=== PATIENT | female | born 1990 ===

== ENCOUNTER 2020-05-14 12:05 | Outpatient (CLI) | payer SELFPAY ==
[2020-05-14 12:42] VITALS: BP 115/81
[2020-05-14] MEDS ORDERED: LACTATED RINGERS 1,000 ML IV SCH (13:00)
--- NOTE | 2020-05-14 15:36 | Ultrasound Report ---
ULTRASOUND OBSTETRIC LIMITED ULTRASOUND BIOPHYSICAL PROFILE INDICATION / CLINICAL INFORMATION: Nonreactive stress test. COMPARISON: None available. FINDINGS: BREATHING MOVEMENT = 0 GROSS BODY MOVEMENT = 2 TONE = 2 QUALITATIVE AMNIOTIC FLUID VOLUME = 2 TOTAL BIOPHYSICAL SCORE = 6/8 AMNIOTIC FLUID INDEX (cm) = 12.9 PRESENTATION: Cephalic. HEART RATE (beats per minute): 140 ADDITIONAL FINDINGS: The technologist reports possible right hydronephrosis. However, I do not see an image demonstrating this finding. IMPRESSION: 1. Biophysical Score = 6/8 2. Normal amniotic fluid index of 12.9 cm. 3. Additional findings as above. Signer Name: Marc Hsu MD Signed: 05/14/2020 3:31 PM Workstation Name: [id number]
== END 2020-05-14 15:12 | disposition home or self-care (01) ==
LOC: TRG 12:05 → APU 12:08 → TRG 15:12
PROVIDERS: ATTEND Obstetrics & Gynecology
DX: Z34.83 Encounter for supervision of other normal pregnancy, third trimester (principal); Z3A.37 37 weeks gestation of pregnancy
CPT/HCPCS: 59025; 76815; 76819

== ENCOUNTER 2020-05-26 10:16 | Inpatient (IN) | payer MEDICAID, OTHER, SELFPAY ==
--- NOTE | 2020-05-24 11:46 | History and Physical Report ---
<ANGEL ELLIS JR - Last Filed: 05/24/20 12:59> History of Present Illness Date of examination: 05/24/20 Chief complaint: repeat c/s + BTL History of present illness: 30 yo at 39w4d c/b asthma, Hx LEEP, Prior c/s x 1 (FTP), Class II Obestiy, ASCUS/HPV neg, GDM (diet controlled) presenting for repeat c/s. Labs reviewed. Elevated 1hr GTT 205. Otherwise wnl. 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: abnormal PAP smear Family/Genetic History: none Social history: no significant social history - Obstetrical History : 5 Para: 3 Hx # Term Pregnancies: 3 Spontaneous Abortions: 1 Number of Living Children: 3 Medications and Allergies Allergies Allergy/AdvReac Type Severity Reaction Status Date / Time No Known Allergies Allergy Verified 03/28/16 15:45 Home Medications Medication Instructions Recorded Confirmed Last Taken Type HYDROcodone/APAP 5-325 [[place] 2 each PO Q6H PRN #30 tablet 03/30/16 Unknown Rx 5-325 mg TAB] Ibuprofen [Motrin 600 MG tab] 600 mg PO Q6H #30 tablet 03/30/16 Unknown Rx Review of Systems All systems: negative (expect HPI) - Physical Exam Abdomen: Positive: normal appearance, normal bowel sounds, other (gravid) - Obstetrical FHR: category 1 Uterine Contraction Monitor Mode: External Uterine Contraction Pattern: Absent Results All other labs normal. Assessment and Plan - Patient Problems (1) Gestational diabetes Status: Acute Plan to address problem: --Diabetic diet after delivery --SSI PRN (2) Previous section Status: Acute Plan to address problem: --For repeat c/s + BTL. Self pay. Paid for BTL already. Questions solicited and answered. Consented in the chart. <ORIN UMANA - Last Filed: 05/26/20 10:47> History of Present Illness Date of examination: 05/26/20 Date of admission: 05/26/20 10:16 Chief complaint: repeat c/section + BTL History of present illness: 39.2 weeks active labor previous c/section multiparty desires surgical sterilization Medications and Allergies Active Meds: Active Medications Hydromorphone HCl (Dilaudid) 0.5 mg IV Q5M PRN PRN Reason: BREAK Oxytocin/Sodium Chloride (Pitocin/Ns 30 Unit/500ml) 30 units in 500 mls @ 0 mls/hr IV TITR RIZWAN; Protocol Naloxone HCl (Naloxone) 0.2 mg IV Q2MIN PRN PRN Reason: Res Rate </= 8 or 02 SAT < 92% Ondansetron HCl (Zofran) 4 mg IV Q8H PRN PRN Reason: Nausea And Vomiting - Physical Exam Cardiovascular: Regular rate Lungs: Positive: Clear to auscultation Deep Tendon Reflex Grade: Normal +2 - Obstetrical Cervical Dilatation: 4 Cervical Effacement Percentage: 100 station: -2 Uterine Contraction Pattern: Regular Results Result Diagrams: 05/24/20 10:25 All other labs normal. 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
[~2020-05-26 10:16] MED LIST: BICITRA ORAL LIQD 30ML PO ONE; FAMOTIDINE 20 MG/2 ML INJ IV ONE; LACTATED RINGERS 1,000 ML IV SCH; METOCLOPRAMIDE 10 MG/2 ML INJ IV ONE; OXYTOCIN DRIP 30 UNITS/500 ML BAG IV SCH; ceFAZolin/Water 2 GM/20 ML 2 GM/20 ML SYRINGE IV NR
[2020-05-26] MEDS ORDERED: LACTATED RINGERS 1,000 ML ONE ×3 (10:17→13:34)
--- NOTE | 2020-05-26 10:28 | Anesthesia Day of Surgery ---
Anesthesia Day of Surgery - Day of Surgery Patient Examined: Yes Patient H&P Reviewed: Yes Patient is NPO: Yes Beta Blockers: No Cardiac Clearance: No Pulmonary Clearance: No Elmo's Test: N/A
[2020-05-26] MEDS ORDERED: ONDANSETRON 4 MG/2 ML INJ IV PRN (10:30)
[2020-05-26] MEDS ORDERED: HYDROmorphone 1 MG/1 ML INJ IV PRN (10:30)
[2020-05-26] MEDS ORDERED: NALOXONE 0.4 MG/1 ML INJ IV PRN ×2 (10:30→12:27)
--- NOTE | 2020-05-26 10:30 | Anesthesia Consultation ---
Anesthesia Consult and Med Hx Date of service: 05/26/20 - Airway Anesthetic Teeth Evaluation: Good ROM Head & Neck: Adequate Mental/Hyoid Distance: Adequate Mallampati Class: Class II Intubation Access Assessment: Probably Good - Pulmonary Exam CTA: Yes - Cardiac Exam Cardiac Exam: RRR - Pre-Operative Health Status ASA Pre-Surgery Classification: ASA2 Proposed Anesthetic Plan: Spinal - Pre-Anesthesia Comment Pre-Anesthesia Comments: berna saavedrax1. No anesthesia complications - Pulmonary Hx Smoking: No Hx Asthma: Yes (last attack 1yr ago) Hx Respiratory Symptoms: No SOB: No COPD: No Home Oxygen Therapy: No Hx Pneumonia: No Hx Sleep Apnea: No - Cardiovascular System Hx Hypertension: No Hx Coronary Artery Disease: No Hx Heart Attack/AMI: No Hx Angina: No Hx Percutaneous Transluminal Coronary Angioplasty (PTCA): No Hx Cardia Arrhythmia: No Hx Pacemaker: No Hx Internal Defibrillator: No Hx Valvular Heart Disease: No Hx Heart Murmur: No Hx Peripheral Vascular Disease: No - Central Nervous System Hx Neuromuscular Disorder: No Hx Seizures: No CVA: No Hx Back Pain: No Hx Psychiatric Problems: No - Gastrointestinal Hx Ulcer: No Hx Gastroesophageal Reflux Disease: Yes - Endocrine Hx Renal Disease: No Hx End Stage Renal Disease: No Hx Cirrhosis: No Hx Liver Disease: No Hx Insulin Dependent Diabetes: No Hx Non-Insulin Dependent Diabetes: Yes (gestational) Hx Thyroid Disease: No Hx Hypothyroidism: No Hx Hyperthyroidism: No - Hematic Hx Anemia: No Hx Sickle Cell Disease: No - Other Systems Hx Alcohol Use: No Hx Substance Use: No Hx Cancer: No Hx Obesity: Yes
[2020-05-26] MEDS ORDERED: ONDANSETRON 4 MG/2 ML INJ ONE (10:37)
[2020-05-26] MEDS ORDERED: DEXMEDETOMIDINE 200 MCG/2 ML VIAL IV ONE (10:37)
[2020-05-26] MEDS ORDERED: PHENYLEPHRINE 10 MG/1 ML INJ SDV ONE (10:38)
[2020-05-26 10:42] LABS: Basophils % (Auto) 0.1 % (0.0-1.8); Eosinophils # (Auto) 0.2 K/mm3 (0.0-0.4); Eosinophils % (Auto) 2.2 % (0.0-4.3); Hematocrit 33.3 % (30.3-42.9); Hemoglobin 11.4 gm/dl (10.1-14.3); Lymphocytes # (Auto) 2.4 K/mm3 (1.2-5.4); Lymphocytes % (Auto) 24.6 % (13.4-35.0); Mean Corpuscular HGB Conc 34 % (30-34); Mean Corpuscular Volume 88 fl (79-97); Monocytes # (Auto) 0.4 K/mm3 (0.0-0.8); Monocytes % (Auto) 4.5 % (0.0-7.3); Platelet Count 396 K/mm3 (140-440); Red Blood Count 3.78 M/mm3 (3.65-5.03); Red Cell Distribution Width 14.9 % (13.2-15.2)
[2020-05-26] MEDS ORDERED: dexAMETHasone 20 MG/5 ML VIAL ONE (10:45)
[2020-05-26] MEDS ORDERED: METOCLOPRAMIDE 10 MG/2 ML INJ ONE (10:47)
[2020-05-26] MEDS ORDERED: FAMOTIDINE 20 MG/2 ML INJ IV ONE (10:47)
[2020-05-26] MEDS ORDERED: BICITRA ORAL LIQD 30ML ONE (10:48)
[2020-05-26] MEDS ORDERED: ceFAZolin/Water 2 GM/20 ML 2 GM/20 ML SYRINGE IV ONE (10:48)
[2020-05-26] MEDS ORDERED: SODIUM CHLORIDE 0.9% 100 ML ONE (10:49)
[2020-05-26] MEDS ORDERED: BUPIVACAINE/PF (0.5%) 5 MG/1 ML 30 ML VIAL INFILTRATI ONE (10:49)
[2020-05-26] MEDS ORDERED: KETAMINE/STERILE WATER 50 MG/ML SYRINGE ONE (11:52)
[2020-05-26] MEDS ORDERED: SIMETHICONE 80 MG CHEW TAB PO PRN (12:27)
[2020-05-26] MEDS ORDERED: LANOLIN/ZINC/DIMETHICONE (LANSINOH) 7 GM TP PRN (12:27)
[2020-05-26] MEDS ORDERED: MORPHINE 2 MG/1 ML INJ IV PRN (12:27)
[2020-05-26] MEDS ORDERED: ACETAMINOPHEN 325 MG TAB PO PRN (12:27)
[2020-05-26] MEDS ORDERED: MAGNESIUM HYDROXIDE (MOM) ORAL LIQD UDC PO PRN (12:27)
[2020-05-26] MEDS ORDERED: WITCH HAZEL/ GLYCERIN PAD TP PRN (12:27)
--- NOTE | 2020-05-26 12:34 | Procedure Note ---
OB Delivery Note - Delivery Date of Delivery: 05/26/20 Surgeon: ORIN UMANA Estimated blood loss: 500cc - Section Preop diagnosis: other (repeat cesaren section desiring surgical steriliztion) Postop diagnosis: same section procedure: repeat low transverse, bilateral tubal ligation Disposition: PACU Complications: none Narrative: Preop diagnosis: IUP at 39.2 weeks, previous sectionx1, multiparity desiring surgical sterilization Postop diagnosis: Same Procedure: Repeat low transverse section via Pfannenstiel incision, Bilateral tubal ligation via Modified Lincoln procedure Surgeon: Dr. Orin Umana Anesthesia spinal Complications none EBL 500ml IV fluids 1300mL Urine output 500mL, clear Drains Herring to gravity Findings: Viable male with weight 3258and 8/9, normal uterus tubes and ovaries bilaterally Procedure: Patient was consented in OB triage, taken to the operating room where she received excellent spinal anesthesia. She was then placed in the dorsal supine position with a leftward tilt. The abdomen was prepped and draped in a sterile fashion, and a timeout was verified. Adequate anesthesia was confirmed prior to the skin incision. A Pfannenstiel skin incision was made with a scalpel taken down to the underlying structures and the fascia was incised in the midline. The incision was extended laterally with curved Kohli scissors, the superior and inferior aspects of the fascial incisions were grasped with Payton clamps and the rectus muscles dissected sharply. The abdomen was entered bluntly in the midline carried down inferiorly with good visualization of the bladder. The vesicouterine peritoneum was tented with Argentine forceps and incised in the midline with Metzenbaum scissors and the vesicouterine peritoneum taken down sharply. Bladder blade was inserted, the uterine incision was made sharply with a scalpel. The inferior and superior aspect of the uterine incisions were extended bluntly, the baby's head was delivered atraumatically. The remainder of the delivery was atraumatic, a loose nuchal cord was reduced after delivery. The cord was clamped and cut and baby handed to waiting NICU team. An intact placenta with three-vessel cord delivered manually. The uterus was then cleared of all clots and debris and the uterus exteriorized. The uterine incision was closed with 2 layers of 0 chromic with excellent hemostasis. The fallopian tubes were suture ligated in a modififed Lincoln fashion with no complications. The abdomen was then irrigated with warm normal saline and the uterus placed back into the abdomen atraumatically. A second look at the uterine incision and ensured hemostasis. The peritoneum was closed with 3-0 Vicryl, the rectus muscles approximated with 3-0 Vicryl, and the fascia closed with 0 Vicryl in the usual fashion. The subcuticular structures were closed with interrupted sutures of 3-0 Vicryl and the skin closed with sherri. A pressure dressing was applied. All sponge needle and instrument counts were correct x2. There were no complications. Mom to the recovery area and baby to NICU in stable condition. EBL 500mL Dima Umana MD
[2020-05-26] MEDS ORDERED: OXYTOCIN DRIP 30 UNITS/500 ML BAG IV SCH (13:00)
--- NOTE | 2020-05-26 13:08 | Progress Note ---
Spinal Anesthesia Block - Spinal Anesthesia Block Start Time: 11:16 Stop Time: 11:35 Performed by:: NAIMA HOLM Procedure: Patient IDed, H&P reviewed, all questions and concerns were answered, and consent was signed. Timeout was performed at bedside. Patient in sitting position. Sterile prep and drape was performed. [3] ml of 1% lidocaine skin wheal at L[3]- L [4]. Needle introducer advanced. 25 gauge spinal needle advanced. Clear, free flowing CSF. negative blood, negative paresthesia. Spinal dose given. All needles removed. Patient tolerated procedure.
[2020-05-26] MEDS: MORPHINE 4 MG/1 ML INJ IV PRN ×2 (14:44→20:24)
[2020-05-26] MEDS ORDERED: guaiFENesin 100 MG/5 ML ORAL LIQD PO PRN (17:57)
[2020-05-26] MEDS ORDERED: LACTATED RINGERS 1,000 ML IV SCH (20:00)
--- NOTE | 2020-05-26 22:18 | Post Anesthesia Evaluation ---
- Post Anesthesia Evaluation Patient Participated: Yes Airway Patent: Yes Stable Respiratory Function: Yes Nausea/Vomiting: No Temp > 96.8F: Yes Pain Manageable: Yes Adequeate Hydration: Yes Anesthesia Complications: No Block Receding Appropriately: Yes Patient on Ventilator: No
[2020-05-27] MEDS: MORPHINE 4 MG/1 ML INJ IV PRN (00:31)
[2020-05-27 01:57] LABS: Hematocrit 32.2 % (30.3-42.9); Hemoglobin 10.8 gm/dl (10.1-14.3)
[2020-05-27] MEDS: guaiFENesin 200 MG TAB PO PRN (03:31)
[2020-05-27] MEDS: HYDROcodone/ACETAMINOPHEN 5-325 MG TAB PO PRN ×2 (06:03→16:13)
[2020-05-27] MEDS: IBUPROFEN 800 MG TAB PO PRN ×2 (08:20→20:34)
--- NOTE | 2020-05-27 11:08 | Progress Note ---
Assessment and Plan A: POD #1 GDM A1 P: Follow Routine Postop Orders Encouraged increased ambulation Continue Accuchecks per order GDM diet Subjective - Subjective Date of service: 05/27/20 Patient reports: appetite normal, voiding normally, pain well controlled, ambulating normally : doing well, bottle feeding (and ) Objective - Vital Signs Latest vital signs: Vital Signs Temp Pulse Resp BP BP Pulse Ox 05/27/20 07:25 98.2 F 81 18 105/67 05/27/20 04:41 98.3 F 86 18 102/63 94 05/27/20 00:09 98.5 F 75 18 115/74 94 05/26/20 19:47 98.4 F 70 18 118/79 93 05/26/20 14:44 18 05/26/20 14:20 97.6 F 73 18 105/61 98 05/26/20 13:55 66 12 99/64 05/26/20 13:40 74 12 96/61 97 05/26/20 13:25 71 12 106/57 98 05/26/20 13:12 72 10 L 109/55 96 05/26/20 13:05 67 14 104/53 95 05/26/20 13:00 77 11 L 108/55 95 05/26/20 12:55 97.4 F L 80 13 105/64 95 Intake and Output 05/26/20 05/27/20 05/27/20 22:59 06:59 14:59 Intake Total 240 240 Output Total 300 1300 600 Balance -300 -1060 -360 Intake: Oral 240 240 Output: Urine 300 1300 600 Indwelling Catheter 300 800 Void 500 600 Other: Total, Intake Amount 120 240 Total, Output Amount 300 500 600 # Voids Indwelling Catheter 1 - Exam Breasts: Present: normal Cardiovascular: Present: Regular rate Lungs: Present: Clear to auscultation, Normal air movement Abdomen: Present: normal appearance, soft, normal bowel sounds Uterus: Present: normal, firm, fundal height below umbilicus Extremities: Present: normal Incision: Present: dry, dressed
[2020-05-28] MEDS: guaiFENesin 200 MG TAB PO PRN (00:26)
[2020-05-28] MEDS: IBUPROFEN 800 MG TAB PO PRN ×2 (05:23→22:03)
--- NOTE | 2020-05-28 10:24 | Progress Note ---
Assessment and Plan - Patient Problems (1) Status post repeat low transverse section Current Visit: Yes Status: Acute Plan to address problem: Continue routine PP orders Remove dressing today after showering Anticipate d/c home tomorrow F/U at office in 1 week after d/c (2) Status post tubal ligation at time of delivery, current hosp Current Visit: Yes Status: Acute (3) Anemia Current Visit: Yes Status: Acute Qualifiers: Anemia type: other cause Other causes of anemia: acute posthemorrhagic Qualified Code(s): D62 - Acute posthemorrhagic anemia Plan to address problem: Asymptomatic Increase iron rich foods into diet Subjective - Subjective Date of service: 05/28/20 Principal diagnosis: S/P repeat C/S with BTL; POD#2 Interval history: See admission H & P; OB operative summary and PP progress notes Patient reports: appetite normal, voiding normally, pain well controlled (with medications), flatus, ambulating normally [place]: doing well, bottle feeding (and ) Objective - Vital Signs Latest vital signs: Vital Signs Temp Pulse Resp BP BP Pulse Ox 05/28/20 07:55 97.9 F 83 18 111/67 97 05/28/20 05:23 18 05/28/20 02:00 98 F 69 18 102/78 05/27/20 21:30 98.9 F 89 18 120/72 96 05/27/20 20:34 18 05/27/20 15:45 98.5 F 82 18 111/68 Intake and Output 05/27/20 05/28/20 05/28/20 23:59 07:59 15:59 Intake Total 440 300 Output Total 800 Balance -360 300 Intake: Oral 440 Intake, Free Water 300 Output: Urine 800 Void 800 Other: Total, Intake Amount 200 Total, Output Amount 800 # Voids Indwelling Catheter 1 Void 1 - Exam Breasts: Present: normal Cardiovascular: Present: Regular rate Lungs: Present: Normal air movement Abdomen: Present: soft, tenderness Uterus: Present: firm, fundal height below umbilicus (U-2) Extremities: Present: normal Deep Tendon Reflex Grade: Normal +2 Incision: Present: dressed (no shadow drainage or bleeding noted)
--- NOTE | 2020-05-28 10:27 | Discharge Summary ---
Providers - Providers Date of Admission: 05/26/20 10:16 Date of discharge: 05/29/20 Attending physician: ORIN UMANA MD Primary care physician: ANGEL ELLIS JR, MD Hospitalization Reason for admission: section Delivery: Procedure: bilateral tubal ligation, repeat low transverse Episiotomy: none Laceration: none Incision: dry, intact Other procedures: tubal ligation complications: none Discharge diagnosis: IUP at term delivered, other (S/P tubal ligation; anemia) [place] baby: male Hospital course: See admission H & P; OB operative summary and PP progress notes Condition at discharge: Stable Disposition: DC- TO HOME OR SELFCARE - Discharge Diagnoses (1) Status post repeat low transverse section Status: Acute (2) Status post tubal ligation at time of delivery, current hosp Status: Acute (3) Anemia Status: Acute Qualifiers: Anemia type: other cause Other causes of anemia: acute posthemorrhagic Qualified Code(s): D62 - Acute posthemorrhagic anemia Plan - Provider Discharge Summary Activity: routine, no sex for 6 weeks, no heavy lifting 4 weeks, no strenuous exercise Diet: other (Iron rich diet) Instructions: routine Additional instructions: [] Smoking cessation referral if applicable(refer to patient education folder for contact #) [] Refer to [facility] Booklet Call your doctor immediately for: * Fever > 100.5 * Heavy vaginal bleeding ( >1 pad per hour) * Severe persistent headache * Shortness of breath * Reddened, hot, painful area to leg or breast * Drainage or odor from incision. * Keep incision clean and dry at all times and follow doctor's instructions regarding bathing/showering - Follow up plan Follow up: ANGEL ELLIS JR, MD [Primary Care Provider] - 7 Days
[2020-05-28] MEDS: HYDROcodone/ACETAMINOPHEN 5-325 MG TAB PO PRN ×2 (13:22→19:23)
[2020-05-29] MEDS: IBUPROFEN 800 MG TAB PO PRN (10:45)
[2020-05-29 12:03] VITALS: BP 132/91
== END 2020-05-29 17:20 | disposition home or self-care (01) | DRG 784 ==
LOC: APU 10:16 → OB 14:32
PROVIDERS: ADMIT Obstetrics & Gynecology; ATTEND Obstetrics & Gynecology
PROC: 10D00Z1 Extraction of Products of Conception, Low, Open Approach (ICD-10-PCS; principal; 2020-05-26)
PROC: 0UB70ZZ Excision of Bilateral Fallopian Tubes, Open Approach (ICD-10-PCS; 2020-05-26)
DX: O24.420 Gestational diabetes mellitus in childbirth, diet controlled (principal); D62 Acute posthemorrhagic anemia; O34.211 Maternal care for low transverse scar from previous cesarean delivery; Z37.0 Single live birth; Z3A.39 39 weeks gestation of pregnancy; O99.52 Diseases of the respiratory system complicating childbirth; J45.909 Unspecified asthma, uncomplicated; O99.214 Obesity complicating childbirth; E66.9 Obesity, unspecified; O90.81 Anemia of the puerperium; Z20.828 Contact with and (suspected) exposure to other viral communicable diseases
CPT/HCPCS: 36415; 82962; 85014; 85018; 85025; 86850; 86900; 86901; 88302; G0378; J0690; J1100; J2270; J2370; J2405; J2765; J3490; J7120; U0003-CS